=== PATIENT | female | born 1970 | race Caucasian/White ===

== ENCOUNTER 2018-07-14 18:30 | Emergency (ER) | payer OTHER ==
[2018-07-14] MEDS ORDERED: Diazepam TAB(*) 5 MG PO ONE (19:50)
[2018-07-14] MEDS ORDERED: Ketorolac INJ* 60 MG/2 ML VIAL IM ONE (19:51)
[2018-07-14] MEDS ORDERED: predniSONE TAB* 20 MG PO ONE (19:51)
--- NOTE | 2018-07-14 20:03 | ED ---
Back Pain - HPI Summary HPI Summary: Complains of chronic low back pain and bilateral hip pain with radiation down left leg. States exacerbation of chronic pain 3 days on the left versus right. Denies trauma, falls, urinary retention Aneta incontinence, loss of sensation or function. Patient ambulatory with pain in left leg. Patient pain managed by a pain clinic. Patient states she contacted pain management for flareup and was advised to come to the ED. Denies fever, cough, sore throat, CP , SOB, N/V/D, abdominal pain, change in urine, change in BM, IV drug use. Chronic back pain subsequent to injury in 1994. Medical history is DM 2, Graves disease. - History of Current Complaint Chief Complaint: EDBackInjuryPain Stated Complaint: BACK PAIN Time Seen by Provider: 07/14/18 18:58 Hx Obtained From: Patient Onset/Duration: Gradual Onset Onset/Duration: Started Days Ago Timing: Constant Back Pain Location: Is Diffuse Severity Initially: Severe Severity Currently: Severe Pain Intensity: 8 Pain Scale Used: 0-10 Numeric Character: Sharp, Dull, Aching, Throbbing Aggravating Symptom(s): Movement, Bending, Walking Alleviating Symptom(s): Rest, Position Associated Signs And Symptoms: Positive: Pain with Weight Bearing - Allergies/Home Medications Allergies/Adverse Reactions: Allergies Allergy/AdvReac Type Severity Reaction Status Date / Time moxifloxacin [From Avelox] Allergy Hives Verified 07/14/18 18:38 Sulfa (Sulfonamide Allergy Hives Verified 07/14/18 20:05 Antibiotics) anti-inflammatory Allergy Hives Uncoded 07/14/18 18:38 Home Medications: Home Medications Atorvastatin* [Lipitor*] 20 mg PO DAILY 07/14/18 [History Confirmed 07/14/18] Levothyroxine TAB* [Synthroid TAB*] 112 mcg PO 0800 07/14/18 [History Confirmed 07/14/18] Loratadine [Claritin 10 MG CAP] 10 mg PO DAILY 07/14/18 [History Confirmed 07/14] Omeprazole CAP* [Prilosec CAP* 20 MG] 40 mg PO DAILY 07/14/18 [History Confirmed 07/14/18] Pioglitazone TAB* [Actos TAB*] 30 mg PO DAILY 07/14/18 [History Confirmed ] Pregabalin CAP(*) [Lyrica CAP(*)] 150 mg PO BID 07/14/18 [History Confirmed ] metFORMIN* [Glucophage 1000 MG TAB *] 1,000 mg PO BID 07/14/18 [History Confirmed 07/14/18] oxyCODONE TAB* [Roxycodone TAB 5 mg*] 15 mg PO Q6H PRN 07/14/18 [History Confirmed 07/14/18] PMH/Surg Hx/FS Hx/Imm Hx Endocrine/Hematology History: Denies: Hx Anticoagulant Therapy History: Denies: Hx Dialysis EENT History: Denies: Hx Deafness Psychiatric History: Denies: Hx Autism Infectious Disease History: No Infectious Disease History: Denies: Traveled Outside the [place] in Last 30 Days - Family History Known Family History: Positive: Non-Contributory - Social History Lives: With Family Alcohol Use: Occasionally Substance Use Type: Reports: None Hx Tobacco Use: No Review of Systems Constitutional: Negative Eyes: Negative ENT: Negative Cardiovascular: Negative Respiratory: Negative Gastrointestinal: Negative Genitourinary: Negative Musculoskeletal: Other Skin: Negative Neurological: Negative Psychological: Normal All Other Systems Reviewed And Are Negative: Yes Physical Exam - Summary Physical Exam Summary: Tenderness to palpation about along bilateral lower back. PMS intact distally in both bilateral lower extremities. Patient ambulatory. Active flexion and extension of hips an intact with pain. No masses, deformity, ecchymosis or erythema noted on spine. Triage Information Reviewed: Yes Vital Signs On Initial Exam: Initial Vitals Temp Pulse Resp BP Pulse Ox 98.4 F 75 18 122/66 94 07/14/18 18:34 07/14/18 18:34 07/14/18 18:34 07/14/18 18:34 07/14/18 18:34 Vital Signs Reviewed: Yes Appearance: Positive: Well-Appearing Skin: Positive: Warm Head/Face: Positive: Normal Head/Face Inspection Eyes: Positive: Normal Neck: Positive: Supple Respiratory/Lung Sounds: Positive: Clear to Auscultation Cardiovascular: Positive: Normal Abdomen Description: Positive: Nontender Musculoskeletal: Positive: Normal Neurological: Positive: Normal Psychiatric: Positive: Normal AVPU Assessment: Alert - [place] Coma Scale Best Eye Response: 4 - Spontaneous Best Motor Response: 6 - Obeys Commands Best Verbal Response: 5 - Oriented Coma Scale Total: 15 Diagnostics - Vital Signs Vital Signs Temp Pulse Resp BP Pulse Ox 07/14/18 18:34 98.4 F 75 18 122/66 94 - Laboratory Lab Statement: Any lab studies that have been ordered have been reviewed, and results considered in the medical decision making process. Back Pain Course/Dx - Course Course Of Treatment: Complains of chronic low back pain and bilateral hip pain with radiation down left leg. States exacerbation of chronic pain 3 days on the left versus right. Denies trauma, falls, urinary retention Aneta incontinence, loss of sensation or function. Patient ambulatory with pain in left leg. Patient pain managed by a pain clinic. Patient states she contacted pain management for flareup and was advised to come to the ED. Denies fever, cough, sore throat, CP, SOB, N/V/D, abdominal pain, change in urine, change in BM, IV drug use. Chronic back pain subsequent to injury in 1994. Medical history is DM 2, Graves disease. Physical exam:Tenderness to palpation about along bilateral lower back. PMS intact distally in both bilateral lower extremities. Patient ambulatory. Active flexion and extension of hips an intact with pain. No masses, deformity, ecchymosis or erythema noted on spine. Vital signs within normal limits. No indication for imaging. Valium 5 mg given here in the ED. Follow-up with pain management. Patient has existing Rx for oxycodone 15 mg 4 times a day, and Lyrica 150 mg twice a day. - Diagnoses Provider Diagnoses: Chronic back pain Discharge - Sign-Out/Discharge Documenting (check all that apply): Patient Departure - Discharge Plan Condition: Stable Disposition: HOME Patient Education Materials: Chronic Back Pain (DC), Lower Back Exercises (ED) Referrals: Danna Patterson DO [Primary Care Provider] - Additional Instructions: Follow-up with pain management. Return to the ED for any new or worsening symptoms - Billing Disposition and Condition Condition: STABLE Disposition: Home
[2018-07-14 20:29] VITALS: BP 124/67
== END 2018-07-14 20:25 | disposition home or self-care (01) ==
LOC: ED 18:30
DX: M54.5 Low back pain (principal); M25.552 Pain in left hip; M25.551 Pain in right hip; Z88.6 Allergy status to analgesic agent; Z88.1 Allergy status to other antibiotic agents; Z88.2 Allergy status to sulfonamides
CPT/HCPCS: 99282; A9270-GY

== ENCOUNTER 2023-10-05 23:15 | Observation (INO) ==
[2023-10-06 00:45] LABS: ABS Eosinophils 0.1 10^3/uL (0.0-0.5); ABS Lymphocytes 0.7 10^3/uL (1.0-4.8); ABS Monocytes 0.7 10^3/uL (0.0-0.9); ABS Neutrophils 5.1 10^3/uL (1.5-7.6); ABS Nucleated RBC 0.01 10^3/ul; Eosinophil % 1.6 %; Hematocrit 42.6 % (35-45); Hemoglobin 14.3 g/dL (11.5-14.3); Lymphocyte % 10.3 %; Mean Corpuscular Hemoglobin 33.9 pg (27-33); Mean Corpuscular Hgb Conc 33.7 g/dL (31-36); Mean Corpuscular Volume 100.5 fL (80-97); Mean Platelet Volume 9.9 fL (7.5-11.2); Nucleated Red Blood Cells % 0.1 %/100WBC (0.0-0.8); Platelet Count 51 10^3/uL (150-450); Red Blood Count 4.24 10^6/uL (3.63-4.92); Red Cell Distribution Width 16.8 % (12-17); White Blood Count 6.6 10^3/uL (3.8-11.8)
[2023-10-06 01:19] LABS: Calcium 8.9 mg/dL (8.6-10.3); Creatinine, Serum 0.83 mg/dL (0.51-0.95); Potassium 3.9 mmol/L (3.5-5.0); eGFR CKD-EPI 84.2 (>60)
[2023-10-06 01:20] LABS: Albumin 3.2 g/dL (3.2-5.2); Globulin 3.2 g/dL (2-4); Total Bilirubin 2.9 mg/dL (0.2-1.0); Total Protein 6.4 g/dL (6.4-8.9)
[2023-10-06] MEDS ORDERED: Dextrose 50% Syringe 50 ml 25 GM/50 ML SYRINGE IV PUSH PRN (03:48)
[2023-10-06] MEDS: Lactulose 30 ml UDC PO SCH (05:11)
[2023-10-06 05:52] LABS: Urine Appearance Turbid; Urine Bacteria Absent /HPF (Absent); Urine Bilirubin 1+ (Negative); Urine Blood 1+ (Negative); Urine Color Dark-Yellow; Urine Glucose 2+ (>=150 mg/dL) (Negative); Urine Ketones 1+ (Negative); Urine Nitrite Negative (Negative); Urine Protein 1+ (>=30 mg/dL) (Negative); Urine Red Blood Cell 3+(>10/hpf) /HPF (0-Trace); Urine Specific Gravity 1.039 (1.002-1.030); Urine Squamous Epithelial Cell Present /HPF (Absent); Urine Urobilinogen 3+ (Negative); Urine White Blood Cell 2+(11-20/hpf) /HPF (0-Trace); Urine pH 5.5 (5.0-8.0)
[2023-10-06] MEDS: NS 0.9% 500 ml BAG 500 ML IV ONE (06:25)
[2023-10-06] MEDS: cefTRIAXone 1 gm/50 mL D5W 1 GM/50 ML BAG IV SCH ×2 (06:42→07:01)
[2023-10-06 07:52] LABS: Albumin 3.3 g/dL (3.2-5.2); C Reactive Protein 4.34 mg/L (<8.01); Calcium 9.4 mg/dL (8.6-10.3); Creatinine, Serum 0.82 mg/dL (0.51-0.95); Globulin 3.4 g/dL (2-4); Magnesium 2.1 mg/dL (1.9-2.7); Potassium 3.8 mmol/L (3.5-5.0); Total Bilirubin 3.3 mg/dL (0.2-1.0); Total Protein 6.7 g/dL (6.4-8.9); eGFR CKD-EPI 85.5 (>60)
[2023-10-06 08:46] LABS: ABS Eosinophils 0.1 10^3/uL (0.0-0.5); ABS Lymphocytes 0.7 10^3/uL (1.0-4.8); ABS Monocytes 0.6 10^3/uL (0.0-0.9); ABS Neutrophils 4.3 10^3/uL (1.5-7.6); ABS Nucleated RBC 0.01 10^3/ul; Eosinophil % 2.1 %; Hematocrit 45.7 % (35-45); Hemoglobin 15.3 g/dL (11.5-14.3); Lymphocyte % 12.6 %; Mean Corpuscular Hemoglobin 33.7 pg (27-33); Mean Corpuscular Hgb Conc 33.5 g/dL (31-36); Mean Corpuscular Volume 100.5 fL (80-97); Mean Platelet Volume 9.9 fL (7.5-11.2); Nucleated Red Blood Cells % 0.2 %/100WBC (0.0-0.8); Platelet Count 41 10^3/uL (150-450); Red Blood Count 4.55 10^6/uL (3.63-4.92); Red Cell Distribution Width 16.9 % (12-17); White Blood Count 5.8 10^3/uL (3.8-11.8)
[2023-10-06 08:50] LABS: INR 1.26 (0.83-1.13)
[2023-10-06] MEDS: Enoxaparin 40 MG/0.4 ML SYR SUBCUT SCH (09:27)
[2023-10-06] MEDS: Potassium Chlor 20 meq TAB.ER PO ONE (09:27)
[2023-10-06] MEDS: Insulin GLARGINE 100 un/ml 10 ml VIAL SUBCUT SCH (20:55)
[2023-10-07 05:31] LABS: INR 1.31 (0.83-1.13)
[2023-10-07 05:42] LABS: ABS Eosinophils 0.1 10^3/uL (0.0-0.5); ABS Lymphocytes 0.6 10^3/uL (1.0-4.8); ABS Neutrophils 7.9 10^3/uL (1.5-7.6); ABS Nucleated RBC 0.01 10^3/ul; Eosinophil % 1.1 %; Hematocrit 42.1 % (35-45); Hemoglobin 14.5 g/dL (11.5-14.3); Lymphocyte % 6.3 %; Mean Corpuscular Hemoglobin 34.3 pg (27-33); Mean Corpuscular Hgb Conc 34.4 g/dL (31-36); Mean Corpuscular Volume 99.8 fL (80-97); Mean Platelet Volume 10.6 fL (7.5-11.2); Nucleated Red Blood Cells % 0.1 %/100WBC (0.0-0.8); Platelet Count 55 10^3/uL (150-450); Red Blood Count 4.22 10^6/uL (3.63-4.92); Red Cell Distribution Width 16.6 % (12-17); White Blood Count 9.6 10^3/uL (3.8-11.8)
[2023-10-07 06:10] LABS: Albumin/Globulin Ratio 0.9 (1-3); Calcium 8.8 mg/dL (8.6-10.3); Creatinine, Serum 0.81 mg/dL (0.51-0.95); Globulin 3.3 g/dL (2-4); Phosphorus 2.2 mg/dL (2.5-5.0); Potassium 3.8 mmol/L (3.5-5.0); Total Bilirubin 2.5 mg/dL (0.2-1.0); Total Protein 6.3 g/dL (6.4-8.9); eGFR CKD-EPI 86.7 (>60)
[2023-10-07 14:11] LABS: Insulin 21.1 mcIU/mL (2.0-16.0)
[2023-10-07 15:47] VITALS: BP 109/63
[2023-10-07] MEDS ORDERED: Potassium & Sodium Phos 250 mg = 1 PACKET PO SCH (21:00)
== END 2023-10-07 17:10 | disposition home or self-care (01) ==
LOC: ED 23:15 → EDHOLD 23:15 → SUATTDRO 10-06 00:28 → MED 10-06 03:10
PROVIDERS: ADMIT Internal Medicine; ATTEND Internal Medicine